=== PATIENT | male | born 1985 | race African-American/Black ===

== ENCOUNTER 2016-09-24 17:22 | Emergency (ER) | payer OTHER ==
[2016-09-24 17:53] VITALS: BP 141/88; PULSE 81; RESP 16; TEMP 98.5
--- NOTE | 2016-09-24 17:56 | ED ---
Wound/Laceration HPI - General Chief Complaint: Wound/Laceration Stated Complaint: lip injury Time Seen by Provider: 09/24/16 17:52 Source: patient, RN notes reviewed Mode of arrival: ambulatory Limitations: no limitations - History of Present Illness Initial Comments: This a 31-year-old male presents emergency Department chief complaint lip laceration. Patient states this happened on Saturday and states that happened during a football game. Patient states he was not seen that day. She felt that he would just get better. Patient states he also injured his right arm but states that it is fine and does not want that evaluated. Patient is up-to- date on his tetanus. Patient states that he noticed last 24 hours increased swelling and some discomfort. He states that there is to be infected. Patient denies any headache, neck stiffness. - Related Data Previous Rx's Medication Instructions Recorded Acetaminophen-Codeine 300-30mg 1 tab PO Q4H PRN #20 tablet 09/24/16 [Tylenol #3] Amoxicillin/Potassium Clav 1 tab PO Q12HR #20 tab 09/24/16 [Augmentin 875-125 Tablet] Allergies Allergy/AdvReac Type Severity Reaction Status Date / Time No Known Allergies Allergy Verified 09/24/16 17:53 Review of Systems ROS Statement: Those systems with pertinent positive or pertinent negative responses have been documented in the HPI. ROS Other: All systems not noted in ROS Statement are negative. Past Medical History Past Medical History: No Reported History Past Surgical History: No Surgical Hx Reported Past Psychological History: No Psychological Hx Reported Smoking Status: Current every day smoker Past Alcohol Use History: None Reported Past Drug Use History: None Reported General Exam Limitations: no limitations General appearance: alert, in no apparent distress Head exam: Present: atraumatic, normocephalic, normal inspection Eye exam: Present: normal appearance, PERRL, EOMI. Absent: scleral icterus, conjunctival injection, periorbital swelling, periorbital tenderness ENT exam: Present: mucous membranes moist, TM's normal bilaterally, normal external ear exam. Absent: normal exam, normal oropharynx (Upper lip there is a 2 cm laceration with some purulent drainage noted in moderate swelling and tenderness with palpation there is no loose dentition with palpation) Neck exam: Present: normal inspection, full ROM. Absent: tenderness, meningismus, lymphadenopathy Respiratory exam: Present: normal lung sounds bilaterally. Absent: respiratory distress, wheezes, rales, rhonchi, stridor Cardiovascular Exam: Present: regular rate, normal rhythm, normal heart sounds. Absent: systolic murmur, diastolic murmur, rubs, gallop, clicks Neurological exam: Present: alert, oriented X3, CN II-XII intact, reflexes normal. Absent: motor sensory deficit Course Vital Signs 09/24/16 17:50 Temperature 98.5 F Pulse Rate 81 Respiratory 16 Rate Blood Pressure 141/88 O2 Sat by Pulse 97 Oximetry Medical Decision Making - Medical Decision Making 31-year-old male present emergency from for lip laceration. I didn't for the patient that his laceration cannot be closed at this time as it was 3 days ago and is currently infected. Patient was placed on antibiotics. Patient will follow-up with ENT for further care. Return parameters were discussed. Disposition Clinical Impression: Infected lip laceration Disposition: HOME SELF-CARE Condition: Stable Instructions: Facial Laceration (ED) Additional Instructions: Please return to the Emergency Department if symptoms worsen or any other concerns. Prescriptions: Acetaminophen-Codeine 300-30mg [Tylenol #3] 1 tab PO Q4H PRN #20 tablet PRN Reason: pain Amoxicillin/Potassium Clav [Augmentin 875-125 Tablet] 1 tab PO Q12HR #20 tab Referrals: None,Stated [Primary Care Provider] - 1-2 days Guilherme Bell MD [STAFF PHYSICIAN] - 1-2 days Time of Disposition: 17:56
== END 2016-09-24 18:05 | disposition home or self-care (01) ==
LOC: EC 17:22
DX: S01.511A Laceration without foreign body of lip, initial encounter (principal); L08.89 Other specified local infections of the skin and subcutaneous tissue; F17.200 Nicotine dependence, unspecified, uncomplicated; X58.XXXA Exposure to other specified factors, initial encounter; Y93.61 Activity, american tackle football
CPT/HCPCS: 99283

== ENCOUNTER 2018-03-07 12:18 | Emergency (ER) | payer OTHER ==
[2018-03-07 12:31] VITALS: BP 140/95; PULSE 104; RESP 20; TEMP 97.5
--- NOTE | 2018-03-07 12:57 | ED ---
General Adult HPI - General Chief complaint: Psychiatric Symptoms Stated complaint: EPS eval Time Seen by Provider: 03/07/18 12:31 Source: patient, RN notes reviewed, old records reviewed Mode of arrival: ambulatory Limitations: no limitations - History of Present Illness Initial comments: 32-year-old male presenting for psychiatric evaluation. Patient states that he has been hearing voices over the past one week. He has no known history of schizophrenia. He is denies visual hallucinations. Patient feels paranoid. He does admit to using both marijuana and 2 days ago he took methamphetamine which made his symptoms significantly worse. Denies suicidal or homicidal ideation. Denies suicide attempt. No physical complaints. No chronic medical problems. - Related Data Home Medications Medication Instructions Recorded Confirmed No Known Home Medications 03/07/18 03/07/18 Allergies Allergy/AdvReac Type Severity Reaction Status Date / Time No Known Allergies Allergy Verified 03/07/18 12:43 Review of Systems ROS Statement: Those systems with pertinent positive or pertinent negative responses have been documented in the HPI. ROS Other: All systems not noted in ROS Statement are negative. Past Medical History Past Medical History: No Reported History History of Any Multi-Drug Resistant Organisms: None Reported Past Surgical History: No Surgical Hx Reported Past Psychological History: No Psychological Hx Reported Smoking Status: Current every day smoker Past Alcohol Use History: None Reported Past Drug Use History: Marijuana, Methamphetamine General Exam Limitations: no limitations General appearance: alert, in no apparent distress Head exam: Present: atraumatic, normocephalic Eye exam: Present: normal appearance, PERRL ENT exam: Present: normal exam Neck exam: Present: normal inspection, tenderness Respiratory exam: Present: normal lung sounds bilaterally. Absent: respiratory distress Cardiovascular Exam: Present: regular rate, normal rhythm GI/Abdominal exam: Present: soft. Absent: distended, tenderness, guarding Extremities exam: Present: normal inspection, normal capillary refill. Absent: pedal edema Back exam: Present: normal inspection Neurological exam: Present: alert, oriented X3 Psychiatric exam: Present: depressed, flat affect. Absent: suicidal ideation Skin exam: Present: warm, dry, intact. Absent: cyanosis, diaphoretic Course Vital Signs 03/07/18 12:29 Temperature 97.5 F L Pulse Rate 104 H Respiratory 20 Rate Blood Pressure 140/95 O2 Sat by Pulse 99 Oximetry Medical Decision Making - Medical Decision Making 32-year-old male presenting with auditory hallucinations and recent drug use. Patient medically cleared, evaluated by EPS, he is given outpatient referrals to community mental health. He has no suicidal or homicidal ideation. Patient is comfortable with plan. He will abstain from illicit drug use. Return with worsening or changing symptoms. - Lab Data Lab Results 03/07/18 Range/Units 12:40 Urine Opiates Screen Not Detected (NotDetected) Ur Oxycodone Screen Not Detected (NotDetected) Urine Methadone Screen Not Detected (NotDetected) Ur Propoxyphene Screen Not Detected (NotDetected) Ur Barbiturates Screen Not Detected (NotDetected) U Tricyclic Antidepress Not Detected (NotDetected) Ur Phencyclidine Scrn Not Detected (NotDetected) Ur Amphetamines Screen Detected H (NotDetected) U Methamphetamines Scrn Detected H (NotDetected) U Benzodiazepines Scrn Not Detected (NotDetected) Urine Cocaine Screen Not Detected (NotDetected) U Marijuana (THC) Screen Detected H (NotDetected) Disposition Clinical Impression: Acute psychosis, Drug-induced psychotic disorder Disposition: HOME SELF-CARE Condition: Good Instructions: Methamphetamine Abuse (ED), Cannabis Abuse (ED) Additional Instructions: Please follow up with community mental health. Is patient prescribed a controlled substance at d/c from ED?: No Referrals: None,Stated [REFERRING] - 1-2 days Decision to Admit Reason: Admit from EC Decision Date: 03/07/18 Decision Time: 14:26
[2018-03-07 13:46] LABS: Amphetamine Screen,Urine Detected (NotDetected); Barbiturate Screen,Urine Not Detected (NotDetected); Benzodiazepines Screen,Urine Not Detected (NotDetected); Cocaine Screen,Urine Not Detected (NotDetected); Methadone Screen, Urine Not Detected (NotDetected); Opiate Screen,Urine Not Detected (NotDetected); Oxycodone Screen, Urine Not Detected (NotDetected); Phencyclidine Screen,Urine Not Detected (NotDetected); Tricyclic Antidepressant,Urine Not Detected (NotDetected); Urn Cannabinoid Scrn Detected (NotDetected)
== END 2018-03-07 14:28 | disposition home or self-care (01) ==
LOC: EC 12:18
DX: F12.951 Cannabis use, unspecified with psychotic disorder with hallucinations (principal); F15.951 Other stimulant use, unspecified with stimulant-induced psychotic disorder with hallucinations; F32.9 Major depressive disorder, single episode, unspecified; F17.200 Nicotine dependence, unspecified, uncomplicated
CPT/HCPCS: 80306; 99285